=== PATIENT | female | born 1950 | race Caucasian/White ===

== ENCOUNTER → 2018-02-22 | Outpatient (CLI) | payer MEDICARE, OTHER | END | disposition home or self-care (01) | LOC: LAB 14:45 → LAB SHORT 14:45 | PROVIDERS: Family Medicine | DX: Z12.72 Encounter for screening for malignant neoplasm of vagina (principal); Z90.710 Acquired absence of both cervix and uterus | CPT/HCPCS: G0145 ==

== ENCOUNTER 2018-08-19 04:54 | Emergency (ER) | payer MEDICARE, OTHER ==
[~2018-08-19] VITALS: Ht 147.3 cm; Wt 49.0 kg
[2018-08-19 05:12] LABS: BASOPHILS ABSOLUTE AUTO 0.04 K/mm3 (0.00-0.23); BASOPHILS PERCENT AUTO 1 % (0-2); EOSINOPHILS ABSOLUTE AUTO 0.13 K/mm3 (0.00-0.68); EOSINOPHILS PERCENT AUTO 2 % (0-6); Hematocrit 39.3 % (33.0-51.0); Hemoglobin 13.1 g/dL (11.5-16.0); IMMATURE GRAN ABSOLUTE AUTO 0.01 K/mm3 (0.00-0.10); IMMATURE GRAN PERCENT AUTO 0 % (0-1); LYMPHOCYTES ABSOLUTE AUTO 2.86 K/mm3 (0.84-5.20); LYMPHOCYTES PERCENT AUTO 37 % (21-46); MONOCYTES ABSOLUTE AUTO 0.86 K/mm3 (0.16-1.47); MONOCYTES PERCENT AUTO 11 % (4-13); Mean Corpuscular HGB Conc 33.3 g/dL (31.5-36.5); Mean Corpuscular Volume 90 fL (80-100); Mean Platelet Volume 10.4 fL (9.1-12.4); NEUTROPHILS ABSOLUTE AUTO 3.89 K/mm3 (1.96-9.15); NEUTROPHILS PERCENT AUTO 50 % (41-73); Platelet Count 250 K/mm3 (150-400); RDW Coefficient Variation 12.3 % (11.7-14.2); RDW Standard Deviation 40.7 fL (35.1-46.3); Red Blood Cell Count 4.36 M/mm3 (3.80-5.20); White Blood Cell Count 7.79 K/mm3 (4.00-11.30)
[2018-08-19 05:32] LABS: Alanine Aminotransfer (ALT/SGP 25 U/L (12-78); Albumin, Blood 3.4 g/dL (3.4-5.0); Alk Phos 51 U/L (50-136); Anion Gap 11 mmol/L (6-16); Aspartate Aminotrans (AST/SGOT 16 U/L (12-37); Bilirubin, Total 0.4 mg/dL (0.1-1.0); Blood Urea Nitrogen 16 mg/dL (8-24); Bun/Creatinine Ratio 18.6 (12.0-20.0); CO2, Blood 21 mmol/L (21-32); Calcium, Blood 9.3 mg/dL (8.5-10.1); Chloride, Blood 112 mmol/L (98-108); Creatinine, Blood 0.86 mg/dL (0.40-1.00); Globulin, Blood 3.3 g/dL (2.2-4.0); Glomerular Filtration Rate >60 (60-); Glucose, Blood 104 mg/dL (70-99); Potassium, Blood 4.1 mmol/L (3.5-5.5); Sodium, Blood 144 mmol/L (136-145); Total Protein, Blood 6.7 g/dL (6.4-8.2)
[2018-08-19] MEDS ORDERED: VALA500 PO (05:47)
[2018-08-19] MEDS ORDERED: CIPR500 PO (05:47)
[2018-08-19] MEDS ORDERED: SERT100 PO (05:47)
[2018-08-19] MEDS ORDERED: LEVSOD150 PO (05:47)
[2018-08-19] MEDS ORDERED: CELE100 PO (05:48)
[2018-08-19] MEDS ORDERED: LEVE500 PO (05:48)
[2018-08-19] MEDS ORDERED: CLON.1 PO (05:48)
[2018-08-19] MEDS ORDERED: Cetirizine HCl10 MG PO (05:48)
[2018-08-19] MEDS ORDERED: Simvastatin20 MG PO (05:48)
[2018-08-19] MEDS ORDERED: Advair Hfa 230-12 GM (05:48)
[2018-08-19] MEDS ORDERED: OMEPRAZOLE20 MG PO (05:49)
[2018-08-19] MEDS ORDERED: ALEN70 PO (05:49)
[2018-08-19] MEDS ORDERED: TRAZ100 PO (05:49)
[2018-08-19] MEDS ORDERED: Keppra750 MG PO (05:49)
== END 2018-08-19 06:07 | disposition home or self-care (01) ==
LOC: ER 04:54
PROVIDERS: Emergency Medicine
DX: G40.409 Other generalized epilepsy and epileptic syndromes, not intractable, without status epilepticus (principal); Z88.0 Allergy status to penicillin; E03.9 Hypothyroidism, unspecified
CPT/HCPCS: 80053; 85025; 96365; 99284-25; J1953

== ENCOUNTER 2019-02-21 09:35 | Day surgery (SDC) | payer MEDICARE, OTHER ==
[~2019-02-21 09:35] MED LIST: ALEN70 PO; Advair Hfa 230-12 GM; CELE100 PO; CIPR500 PO; CLON.1 PO; Cetirizine HCl10 MG PO; Keppra750 MG PO; LAMO25; LEVE500 PO; LEVSOD75 PO; OMEPRAZOLE20 MG PO; SERT100 PO; Simvastatin20 MG PO; TRAZ100 PO; VALA500 PO; Vimpat200 MG; ZONI100 PO
[2019-02-21] MEDS ORDERED: VALA500 PO (10:00)
[2019-02-21] MEDS ORDERED: SPIRIVA RESPIMAT4 GM INH (10:05)
--- NOTE | 2019-02-21 10:21 | NUR ---
Ambulatory in Day SurgeryPatient states colon prep results clear. History, Chart, Medications and Allergies reviewed before start of procedure.Lungs clear T/O to Auscultation. Patient confirms NPO status and agrees with scheduled surgery. Patient States Post-Procedure ride home has been arranged.
--- NOTE | 2019-02-21 10:54 | NUR ---
02/21/[address] HERE TO PROVIDE ANESTHESIA CARE, PLEASE SEE RECORD FOR DETAILS. History, Chart, Medications and Allergies reviewed before start of procedure. PATIENT CONFIRMS NPO STATUS AND AGREES WITH SCHEDULED PROCEDURE. MONITOR INTACT WITH CONTINUOUS PULSE OXIMETRY AND INTERMITTENT BP. O2 VIA N/C INTACT THROUGHOUT SEDATION/PROCEDURE.
== END 2019-02-21 23:32 | disposition home or self-care (01) ==
LOC: ORSCMMR 09:35 → ORD 11:00 → ORSCMMR 11:00
PROVIDERS: Internal Medicine Gastroenterology
PROC: 0DBN8ZX Excision of Sigmoid Colon, Via Natural or Artificial Opening Endoscopic, Diagnostic (ICD-10-PCS; principal; 2019-02-21 11:00)
DX: Z12.11 Encounter for screening for malignant neoplasm of colon (principal); Z86.010 Personal history of colon polyps; K63.5 Polyp of colon; J44.9 Chronic obstructive pulmonary disease, unspecified; F17.210 Nicotine dependence, cigarettes, uncomplicated; G40.909 Epilepsy, unspecified, not intractable, without status epilepticus; E03.9 Hypothyroidism, unspecified; Z79.899 Other long term (current) drug therapy
CPT/HCPCS: 88305; J2704; J7120

== ENCOUNTER 2020-05-03 21:41 | Emergency (ER) | payer MEDICARE, OTHER ==
[~2020-05-03] VITALS: Ht 147.3 cm; Wt 40.8 kg
[~2020-05-03 21:41] MED LIST changes: +ATOR20 PO; +DIVA500EC PO; +FLUT.05NI; +SPIRIVA RESPIMAT4 G2 INH; +TIOT18 INH; +ZYRTEC10 M2 PO
[2020-05-03] MEDS ORDERED: Synthroid200 MCG PO (21:56)
[2020-05-03] MEDS ORDERED: OMEP20ER PO (21:56)
[2020-05-03] MEDS ORDERED: ZYRTEC10 M2 PO (21:57)
[2020-05-03] MEDS ORDERED: CELE100 PO (21:57)
[2020-05-03] MEDS ORDERED: ALEN70 PO (21:57)
[2020-05-03] MEDS ORDERED: ATOR20 PO (21:57)
[2020-05-03] MEDS ORDERED: LEVE500 PO (21:57)
[2020-05-03] MEDS ORDERED: TRAZ100 PO (21:57)
[2020-05-03 22:39] LABS: BASOPHILS ABSOLUTE AUTO 0.04 K/mm3 (0.00-0.23); BASOPHILS PERCENT AUTO 1 % (0-2); EOSINOPHILS ABSOLUTE AUTO 0.12 K/mm3 (0.00-0.68); EOSINOPHILS PERCENT AUTO 2 % (0-6); Hematocrit 38.8 % (33.0-51.0); Hemoglobin 12.8 g/dL (11.5-16.0); IMMATURE GRAN ABSOLUTE AUTO 0.03 K/mm3 (0.00-0.10); IMMATURE GRAN PERCENT AUTO 0 % (0-1); LYMPHOCYTES PERCENT AUTO 32 % (21-46); MONOCYTES ABSOLUTE AUTO 0.88 K/mm3 (0.16-1.47); MONOCYTES PERCENT AUTO 11 % (4-13); Mean Corpuscular HGB 31.9 pg (26.0-34.0); Mean Corpuscular Volume 97 fL (80-100); Mean Platelet Volume 10.4 fL (9.1-12.4); NEUTROPHILS ABSOLUTE AUTO 4.46 K/mm3 (1.96-9.15); NEUTROPHILS PERCENT AUTO 55 % (41-73); Platelet Count 172 K/mm3 (150-400); RDW Coefficient Variation 13.5 % (11.7-14.2); RDW Standard Deviation 48.5 fL (35.1-46.3); Red Blood Cell Count 4.01 M/mm3 (3.80-5.20); White Blood Cell Count 8.13 K/mm3 (4.00-11.30)
[2020-05-03 22:52] LABS: Alanine Aminotransfer (ALT/SGP 23 U/L (12-78); Albumin, Blood 3.2 g/dL (3.4-5.0); Albumin/Globulin Ratio 1.1 (0.8-1.8); Alk Phos 45 U/L (50-136); Anion Gap 6 mmol/L (6-16); Aspartate Aminotrans (AST/SGOT 17 U/L (12-37); Bilirubin, Total 0.2 mg/dL (0.1-1.0); Blood Urea Nitrogen 19 mg/dL (8-24); Bun/Creatinine Ratio 30.5 (12.0-20.0); CO2, Blood 25 mmol/L (21-32); Calcium, Blood 8.6 mg/dL (8.5-10.1); Chloride, Blood 107 mmol/L (98-108); Creatinine, Blood 0.62 mg/dL (0.40-1.00); Globulin, Blood 2.8 g/dL (2.2-4.0); Glomerular Filtration Rate >60 (60-); Glucose, Blood 85 mg/dL (70-99); Magnesium, Blood 2.1 mg/dL (1.6-2.4); Potassium, Blood 4.4 mmol/L (3.5-5.5); Sodium, Blood 138 mmol/L (136-145)
[2020-05-03 23:25] LABS: Valproic Acid 39.6 ug/mL (50.0-100.0)
== END 2020-05-04 00:40 | disposition home or self-care (01) ==
LOC: ER 21:41
PROVIDERS: Emergency Medicine
DX: G40.909 Epilepsy, unspecified, not intractable, without status epilepticus (principal); E03.9 Hypothyroidism, unspecified; J44.9 Chronic obstructive pulmonary disease, unspecified; F17.200 Nicotine dependence, unspecified, uncomplicated; Z88.0 Allergy status to penicillin; Z79.899 Other long term (current) drug therapy
CPT/HCPCS: 80053; 80164; 80177; 83735; 85025; 93005; 93010; 99284-25

== ENCOUNTER → 2020-05-08 | Outpatient (CLI) | payer MEDICARE, OTHER ==
[~2020-05-08] MED LIST changes: +OMEP20ER PO; +Synthroid200 MCG PO
== END | disposition home or self-care (01) ==
LOC: LAB UCHC 10:46 → LAB SHORT 10:46
DX: N39.0 Urinary tract infection, site not specified (principal)
CPT/HCPCS: 87086

== ENCOUNTER 2020-07-01 07:51 | Day surgery (SDC) | payer MEDICARE, OTHER ==
[~2020-07-01] VITALS: Ht 147.3 cm; Wt 40.7 kg
[~2020-07-01 07:51] MED LIST changes: +Flonase 0.05% N16 GM
--- NOTE | 2020-07-01 09:38 | NUR ---
PT TO DAYS SURGERY VIA WC. PT IS ABLE TO STAND AND AMBULATE INDEPENDENTLY. WEIGHED AND TO THE RESTROOM. PT PLACED IN GOWN. PRE PROCEDURE PAPERWORK COMPLETED. PT REFUSES TO CONSENT FOR BLOOD. STS THAT SHE HAS TO HAVE HER BLOOD CHECKED BECAUSE SHE HAS REACTIONS. IV PLACED, LR STARTED ORDERED. PT VSS ON RA. PT PROVIDED WARM BLANKETS. SPOUSE WILL BE RIDE HOME. DR. SALAZAR TO BEDSIDE FOR EXAMINATION.WOULD LIKE PT TO TAKE HOME KEPPRA AND DEPAKOTE AT THIS TIME. PT PROVIDED WATER AND TAKES MEDICATION DIRECTED BY . MINIMAL WATER INTAKE. NO ADDITIONAL NEEDS AT THIS TIME. Ambulatory in Day Surgery History, Chart, Medications and Allergies reviewed before start of procedure. Patient confirms NPO status and agrees with scheduled surgery. Patient States Post-Procedure ride home has been arranged. History, Chart, Medications and Allergies reviewed before start of procedure. Lungs clear T/O to Auscultation.
--- NOTE | 2020-07-01 10:18 | NUR ---
Patient up to Ambulate independently. Gait steady. Discharge instructions reviewed with patient. Patient verbalizes understanding. Copy given to patient to take home. Patient States Post-Procedure ride home has been arranged. Discharged via wheelchair to private car for ride home.
== END 2020-07-01 10:35 | disposition home or self-care (01) ==
LOC: ORSCMMR 07:51 → ORD 09:30 → ORSCMMR 10:35
PROVIDERS: Internal Medicine Gastroenterology
PROC: 0DB78ZX Excision of Stomach, Pylorus, Via Natural or Artificial Opening Endoscopic, Diagnostic (ICD-10-PCS; principal; 2020-07-01 09:30)
PROC: 0DB98ZX Excision of Duodenum, Via Natural or Artificial Opening Endoscopic, Diagnostic (ICD-10-PCS; principal; 2020-07-01 09:30)
DX: R10.33 Periumbilical pain (principal); R10.13 Epigastric pain; E78.5 Hyperlipidemia, unspecified; J44.9 Chronic obstructive pulmonary disease, unspecified; F17.210 Nicotine dependence, cigarettes, uncomplicated; K21.9 Gastro-esophageal reflux disease without esophagitis; E03.9 Hypothyroidism, unspecified; R56.9 Unspecified convulsions; Z79.899 Other long term (current) drug therapy
CPT/HCPCS: 88305; J2001; J2250; J2704; J7120

== ENCOUNTER 2020-12-31 16:44 | Emergency (ER) | payer MEDICARE, OTHER ==
[~2020-12-31] VITALS: Ht 147.3 cm; Wt 39.9 kg
[2020-12-31 17:53] LABS: BASOPHILS ABSOLUTE AUTO 0.02 K/mm3 (0.00-0.23); BASOPHILS PERCENT AUTO 0 % (0-2); EOSINOPHILS PERCENT AUTO 2 % (0-6); Hematocrit 33.5 % (33.0-51.0); Hemoglobin 12.2 g/dL (11.5-16.0); IMMATURE GRAN ABSOLUTE AUTO 0.03 K/mm3 (0.00-0.10); IMMATURE GRAN PERCENT AUTO 1 % (0-1); LYMPHOCYTES ABSOLUTE AUTO 1.68 K/mm3 (0.84-5.20); LYMPHOCYTES PERCENT AUTO 27 % (21-46); MONOCYTES ABSOLUTE AUTO 0.61 K/mm3 (0.16-1.47); MONOCYTES PERCENT AUTO 10 % (4-13); Mean Corpuscular HGB 36.6 pg (26.0-34.0); Mean Corpuscular HGB Conc 36.4 g/dL (31.5-36.5); Mean Corpuscular Volume 101 fL (80-100); NEUTROPHILS ABSOLUTE AUTO 3.76 K/mm3 (1.96-9.15); NEUTROPHILS PERCENT AUTO 61 % (41-73); Platelet Count 143 K/mm3 (150-400); RDW Coefficient Variation 13.2 % (11.7-14.2); RDW Standard Deviation 49.1 fL (35.1-46.3); Red Blood Cell Count 3.33 M/mm3 (3.80-5.20)
[2020-12-31 18:13] LABS: Alanine Aminotransfer (ALT/SGP 16 U/L (12-78); Alk Phos 86 U/L (50-136); Anion Gap 6 mmol/L (6-16); Aspartate Aminotrans (AST/SGOT 20 U/L (12-37); Bilirubin, Total 0.3 mg/dL (0.1-1.0); Blood Urea Nitrogen 9 mg/dL (8-24); Bun/Creatinine Ratio 13.5 (12.0-20.0); CO2, Blood 23 mmol/L (21-32); Calcium, Blood 8.6 mg/dL (8.5-10.1); Chloride, Blood 99 mmol/L (98-108); Creatinine, Blood 0.67 mg/dL (0.40-1.00); Globulin, Blood 3.1 g/dL (2.2-4.0); Glomerular Filtration Rate >60 (60-); Glucose, Blood 109 mg/dL (70-99); Potassium, Blood 4.2 mmol/L (3.5-5.5); Sodium, Blood 128 mmol/L (136-145); Total Protein, Blood 6.1 g/dL (6.4-8.2)
[2020-12-31 18:17] LABS: Valproic Acid 84.9 ug/mL (50.0-100.0)
[2020-12-31 19:18] LABS: Platelet Function Col/ADP 109 sec (56-115); Platelet Function Col/Epi 139 sec (75-165)
[2020-12-31 19:37] LABS: International Normalized Ratio 0.89; Prothrombin Time Results 9.7 Sec (9.7-11.5)
[2021-01-20] MEDS ORDERED: ZOLOFT50 MG PO (21:10)
== END 2020-12-31 22:26 | disposition short-term general hospital (02) ==
LOC: ER 16:44
PROVIDERS: Emergency Medicine
DX: I62.00 Nontraumatic subdural hemorrhage, unspecified (principal); J44.9 Chronic obstructive pulmonary disease, unspecified; K21.9 Gastro-esophageal reflux disease without esophagitis; F17.210 Nicotine dependence, cigarettes, uncomplicated; Z88.0 Allergy status to penicillin; Z79.899 Other long term (current) drug therapy
CPT/HCPCS: 36415; 70450; 80053; 80164; 84443; 85025; 85576; 85610; 85730; 93005; 93010; 99285-25

== ENCOUNTER 2021-02-23 13:29 | Emergency (ER) | payer MEDICARE, OTHER ==
[~2021-02-23] VITALS: Ht 144.8 cm; Wt 38.6 kg
[~2021-02-23 13:29] MED LIST changes: +ZOLOFT50 MG PO
[2021-02-23 14:18] LABS: BASOPHILS ABSOLUTE AUTO 0.03 K/mm3 (0.00-0.23); BASOPHILS PERCENT AUTO 1 % (0-2); EOSINOPHILS ABSOLUTE AUTO 0.03 K/mm3 (0.00-0.68); EOSINOPHILS PERCENT AUTO 1 % (0-6); Hematocrit 39.6 % (33.0-51.0); Hemoglobin 14.4 g/dL (11.5-16.0); IMMATURE GRAN ABSOLUTE AUTO 0.04 K/mm3 (0.00-0.10); IMMATURE GRAN PERCENT AUTO 1 % (0-1); LYMPHOCYTES ABSOLUTE AUTO 1.93 K/mm3 (0.84-5.20); LYMPHOCYTES PERCENT AUTO 30 % (21-46); MONOCYTES ABSOLUTE AUTO 0.85 K/mm3 (0.16-1.47); MONOCYTES PERCENT AUTO 13 % (4-13); Mean Corpuscular HGB 34.4 pg (26.0-34.0); Mean Corpuscular HGB Conc 36.4 g/dL (31.5-36.5); Mean Corpuscular Volume 95 fL (80-100); NEUTROPHILS ABSOLUTE AUTO 3.57 K/mm3 (1.96-9.15); NEUTROPHILS PERCENT AUTO 55 % (41-73); Platelet Count 176 K/mm3 (150-400); RDW Coefficient Variation 11.5 % (11.7-14.2); RDW Standard Deviation 39.8 fL (35.1-46.3); Red Blood Cell Count 4.18 M/mm3 (3.80-5.20); White Blood Cell Count 6.45 K/mm3 (4.00-11.30)
[2021-02-23 14:52] LABS: Alanine Aminotransfer (ALT/SGP 28 U/L (12-78); Albumin, Blood 3.2 g/dL (3.4-5.0); Albumin/Globulin Ratio 0.9 (0.8-1.8); Alk Phos 85 U/L (50-136); Anion Gap 7 mmol/L (6-16); Aspartate Aminotrans (AST/SGOT 33 U/L (12-37); Bilirubin, Total 0.4 mg/dL (0.1-1.0); Blood Urea Nitrogen 14 mg/dL (8-24); Bun/Creatinine Ratio 25.4 (12.0-20.0); CO2, Blood 22 mmol/L (21-32); Calcium, Blood 8.5 mg/dL (8.5-10.1); Chloride, Blood 95 mmol/L (98-108); Creatinine, Blood 0.55 mg/dL (0.40-1.00); Globulin, Blood 3.5 g/dL (2.2-4.0); Glomerular Filtration Rate >60 (60-); Glucose, Blood 74 mg/dL (70-99); Potassium, Blood 4.5 mmol/L (3.5-5.5); Sodium, Blood 124 mmol/L (136-145); Total Protein, Blood 6.7 g/dL (6.4-8.2); Valproic Acid 90.2 ug/mL (50.0-100.0)
== END 2021-02-23 15:20 | disposition home or self-care (01) ==
LOC: ER 13:29
PROVIDERS: Physician Assistant
DX: S09.90XA Unspecified injury of head, initial encounter (principal); W01.10XA Fall on same level from slipping, tripping and stumbling with subsequent striking against unspecified object, initial encounter; E03.9 Hypothyroidism, unspecified; F17.210 Nicotine dependence, cigarettes, uncomplicated; Z88.0 Allergy status to penicillin
CPT/HCPCS: 36415; 70450; 80053; 80164; 80177; 85025; 99284-25

== ENCOUNTER 2021-02-28 15:23 | Emergency (ER) | payer MEDICARE, OTHER ==
[~2021-02-28] VITALS: Ht 144.8 cm; Wt 38.6 kg
[2021-02-28 16:59] LABS: BASOPHILS ABSOLUTE AUTO 0.03 K/mm3 (0.00-0.23); BASOPHILS PERCENT AUTO 0 % (0-2); EOSINOPHILS ABSOLUTE AUTO 0.04 K/mm3 (0.00-0.68); EOSINOPHILS PERCENT AUTO 1 % (0-6); Hematocrit 39.8 % (33.0-51.0); Hemoglobin 14.1 g/dL (11.5-16.0); IMMATURE GRAN ABSOLUTE AUTO 0.05 K/mm3 (0.00-0.10); IMMATURE GRAN PERCENT AUTO 1 % (0-1); LYMPHOCYTES ABSOLUTE AUTO 2.07 K/mm3 (0.84-5.20); LYMPHOCYTES PERCENT AUTO 25 % (21-46); MONOCYTES ABSOLUTE AUTO 1.09 K/mm3 (0.16-1.47); MONOCYTES PERCENT AUTO 13 % (4-13); Mean Corpuscular HGB 34.1 pg (26.0-34.0); Mean Corpuscular HGB Conc 35.4 g/dL (31.5-36.5); Mean Corpuscular Volume 96 fL (80-100); Mean Platelet Volume 10.8 fL (9.1-12.4); NEUTROPHILS ABSOLUTE AUTO 5.17 K/mm3 (1.96-9.15); NEUTROPHILS PERCENT AUTO 61 % (41-73); Platelet Count 172 K/mm3 (150-400); RDW Coefficient Variation 11.7 % (11.7-14.2); RDW Standard Deviation 41.5 fL (35.1-46.3); Red Blood Cell Count 4.13 M/mm3 (3.80-5.20); White Blood Cell Count 8.45 K/mm3 (4.00-11.30)
[2021-02-28 17:31] LABS: Alanine Aminotransfer (ALT/SGP 25 U/L (12-78); Albumin, Blood 3.3 g/dL (3.4-5.0); Alk Phos 87 U/L (50-136); Anion Gap 6 mmol/L (6-16); Aspartate Aminotrans (AST/SGOT 33 U/L (12-37); Bilirubin, Total 0.3 mg/dL (0.1-1.0); Blood Urea Nitrogen 15 mg/dL (8-24); Bun/Creatinine Ratio 28.2 (12.0-20.0); CO2, Blood 24 mmol/L (21-32); Calcium, Blood 9.3 mg/dL (8.5-10.1); Chloride, Blood 99 mmol/L (98-108); Creatinine, Blood 0.53 mg/dL (0.40-1.00); Globulin, Blood 3.4 g/dL (2.2-4.0); Glomerular Filtration Rate >60 (60-); Glucose, Blood 83 mg/dL (70-99); Potassium, Blood 4.6 mmol/L (3.5-5.5); Sodium, Blood 129 mmol/L (136-145); Total Protein, Blood 6.7 g/dL (6.4-8.2)
== END 2021-02-28 21:48 | disposition left against medical advice (07) ==
LOC: ER 15:23
PROVIDERS: Physician Assistant
DX: S01.01XA Laceration without foreign body of scalp, initial encounter (principal); Z79.899 Other long term (current) drug therapy; Z79.890 Hormone replacement therapy; Z53.20 Procedure and treatment not carried out because of patient's decision for unspecified reasons; W19.XXXA Unspecified fall, initial encounter
CPT/HCPCS: 36415; 70450; 80053; 85025; 99283-25

== ENCOUNTER 2021-11-03 14:47 | Emergency (ER) | payer OTHER, MEDICARE ==
[~2021-11-03] VITALS: Ht 147.3 cm; Wt 47.0 kg
[~2021-11-03 14:47] MED LIST changes: +CALCIUM CARBON500 M1 PO; +DIVA250EC PO; +LEVO-T100 MC1 PO; +MAG DELAY64 MG PO; +VITAMIN D310 MC4 PO; +Zinc PO
== END 2021-11-03 16:25 | disposition home or self-care (01) ==
LOC: ER 14:47
DX: S09.90XA Unspecified injury of head, initial encounter (principal); S00.83XA Contusion of other part of head, initial encounter; F17.210 Nicotine dependence, cigarettes, uncomplicated; E03.9 Hypothyroidism, unspecified; J44.9 Chronic obstructive pulmonary disease, unspecified; M50.30 Other cervical disc degeneration, unspecified cervical region; M12.9 Arthropathy, unspecified; Z96.649 Presence of unspecified artificial hip joint; W01.198A Fall on same level from slipping, tripping and stumbling with subsequent striking against other object, initial encounter; Y93.01 Activity, walking, marching and hiking
CPT/HCPCS: 70450; 72125

== ENCOUNTER 2022-05-11 08:33 | Emergency (ER) | payer MEDICARE, OTHER ==
[~2022-05-11] VITALS: Ht 154.9 cm; Wt 52.2 kg
[2022-05-11 10:29] LABS: BASOPHILS ABSOLUTE AUTO 0.02 K/mm3 (0.00-0.23); BASOPHILS PERCENT AUTO 0 % (0-2); EOSINOPHILS PERCENT AUTO 0 % (0-6); Hematocrit 39.5 % (33.0-51.0); Hemoglobin 14.1 g/dL (11.5-16.0); IMMATURE GRAN ABSOLUTE AUTO 0.05 K/mm3 (0.00-0.10); IMMATURE GRAN PERCENT AUTO 1 % (0-1); LYMPHOCYTES ABSOLUTE AUTO 0.81 K/mm3 (0.84-5.20); LYMPHOCYTES PERCENT AUTO 8 % (21-46); MONOCYTES ABSOLUTE AUTO 0.77 K/mm3 (0.16-1.47); MONOCYTES PERCENT AUTO 8 % (4-13); Mean Corpuscular HGB 33.2 pg (26.0-34.0); Mean Corpuscular HGB Conc 35.7 g/dL (31.5-36.5); Mean Corpuscular Volume 93 fL (80-100); Mean Platelet Volume 10.8 fL (9.1-12.4); NEUTROPHILS ABSOLUTE AUTO 8.11 K/mm3 (1.96-9.15); NEUTROPHILS PERCENT AUTO 83 % (41-73); Platelet Count 159 K/mm3 (150-400); RDW Coefficient Variation 12.3 % (11.7-14.2); Red Blood Cell Count 4.25 M/mm3 (3.80-5.20); White Blood Cell Count 9.76 K/mm3 (4.00-11.30)
[2022-05-11 10:35] LABS: Source, Urine Clean Catch
[2022-05-11 10:45] LABS: Appearance, Urine Clear (Clear); Bilirubin, Urine Neg (Neg); Blood, Urine 5+ (Neg); Color, Urine Yellow (P-Yellow); Glucose Qualitative, Urine Neg (Neg); Ketones, Urine 2+ (Neg); Leukocyte Esterase, Urine 2+ (Neg); Nitrite, Urine Neg (Neg); Protein, Urine 1+ (Neg); Specific Gravity, Urine 1.015 (1.003-1.022); Urobilinogen, Urine NORM (Normal)
[2022-05-11 10:57] LABS: Squamous Epithelial Cells Few /hpf (Few)
[2022-05-11 10:58] LABS: Bacteria Mod /hpf
[2022-05-11 11:00] LABS: Albumin, Blood 2.9 g/dL (3.4-5.0); Albumin/Globulin Ratio 0.8 (0.8-1.8); Bilirubin, Total 0.4 mg/dL (0.1-1.0); Bun/Creatinine Ratio 22.2 (12.0-20.0); Calcium, Blood 8.8 mg/dL (8.5-10.1); Creatinine, Blood 0.59 mg/dL (0.40-1.00); Free Thyroxine 1.5 ng/dL (0.70-1.60); Globulin, Blood 3.6 g/dL (2.2-4.0); Potassium, Blood 3.9 mmol/L (3.5-5.5); Thyroid Stimulating Hormone 0.429 uIU/mL (0.360-4.800); Total Protein, Blood 6.5 g/dL (6.4-8.2)
[2022-05-11] MEDS ORDERED: METR500 PO (11:17)
[2022-05-11] MEDS ORDERED: PROBIOTIC1 EA13 PO (11:17)
[2022-05-11] MEDS ORDERED: CIPR500 PO (11:17)
== END 2022-05-11 13:07 | disposition home or self-care (01) ==
LOC: ER 08:33
PROVIDERS: Emergency Medicine
DX: K52.89 Other specified noninfective gastroenteritis and colitis (principal); E03.9 Hypothyroidism, unspecified; J44.9 Chronic obstructive pulmonary disease, unspecified; G40.909 Epilepsy, unspecified, not intractable, without status epilepticus; K21.9 Gastro-esophageal reflux disease without esophagitis; F17.210 Nicotine dependence, cigarettes, uncomplicated; Z88.0 Allergy status to penicillin; Z79.899 Other long term (current) drug therapy
CPT/HCPCS: 36415; 74177; 80053; 81001; 84439; 84443; 85025; 87077; 87086; 87186; J7030; Q9967

== ENCOUNTER 2022-05-18 16:19 | Emergency (ER) | payer MEDICARE, OTHER ==
[~2022-05-18] VITALS: Ht 147.3 cm; Wt 45.8 kg
[~2022-05-18 16:19] MED LIST changes: +METR500 PO; +PROBIOTIC1 EA13 PO
== END 2022-05-18 18:41 | disposition home or self-care (01) ==
LOC: ER 16:19
DX: G40.909 Epilepsy, unspecified, not intractable, without status epilepticus (principal); S09.90XA Unspecified injury of head, initial encounter; W19.XXXA Unspecified fall, initial encounter; J44.9 Chronic obstructive pulmonary disease, unspecified; E03.9 Hypothyroidism, unspecified; Z79.899 Other long term (current) drug therapy; Z88.0 Allergy status to penicillin
CPT/HCPCS: 70450

== ENCOUNTER → 2022-09-30 | Outpatient (CLI) | payer MEDICARE, OTHER ==
[2022-09-30 21:23] LABS: Adenovirus F 40/41 Not Detected (NOT DETECT); Astrovirus Not Detected (NOT DETECT); Campylobacter Sp Not Detected (NOT DETECT); Cryptosporidium Not Detected (NOT DETECT); Cyclospora Cayetanensis Not Detected (NOT DETECT); E. Coli O157 Not Detected (NOT DETECT); Entamoeba Histolytica Not Detected (NOT DETECT); Enteroaggregative E. coli-EAEC Not Detected (NOT DETECT); Enteropathogenic E. coli-EPEC Not Detected (NOT DETECT); Enterotoxigenic E. coli-ETEC Not Detected (NOT DETECT); Giardia Lamblia Not Detected (NOT DETECT); Norovirus GI/GII Detected (NOT DETECT); Plesiomonas Shigelloides Not Detected (NOT DETECT); Rotavirus A Not Detected (NOT DETECT); Salmonella Sp Not Detected (NOT DETECT); Sapovirus Not Detected (NOT DETECT); Shiga Toxin-prod E. coli-STEC Not Detected (NOT DETECT); Shigella/Enteroin E. coli-EIEC Not Detected (NOT DETECT); Vibrio Cholerae Not Detected (NOT DETECT); Vibrio Sp Not Detected (NOT DETECT); Yersinia Enterocolitica Not Detected (NOT DETECT)
[2022-10-01 07:16] LABS: Stool Occult Bld Immuno 1 Negative (NEGATIVE)
== END | disposition home or self-care (01) ==
LOC: LAB SHORT 11:55 → LAB 11:55
PROVIDERS: Family Medicine
DX: R19.7 Diarrhea, unspecified (principal)
CPT/HCPCS: 82274; 87507

== ENCOUNTER 2022-11-26 09:27 | Emergency (ER) | payer MEDICARE, OTHER ==
[~2022-11-26] VITALS: Ht 147.3 cm; Wt 47.2 kg
[~2022-11-26 09:27] MED LIST changes: +IBU800 MG PO; +Percocet 5-3251 EACH PO
[2022-11-26] MEDS ORDERED: SENNA LAXATIVE8.6 MG PO (10:49)
[2022-11-26 14:45] VITALS: BP 139/70
[2022-11-26] MEDS ORDERED: IBUP600 PO (15:01)
== END 2022-11-26 15:13 | disposition home or self-care (01) ==
LOC: ER 09:27
DX: R53.83 Other fatigue (principal); R63.0 Anorexia; K59.00 Constipation, unspecified; H53.9 Unspecified visual disturbance; W18.30XA Fall on same level, unspecified, initial encounter; T42.4X5A Adverse effect of benzodiazepines, initial encounter; Z88.0 Allergy status to penicillin; Z88.8 Allergy status to other drugs, medicaments and biological substances; Z79.899 Other long term (current) drug therapy; G40.909 Epilepsy, unspecified, not intractable, without status epilepticus; E03.9 Hypothyroidism, unspecified; J44.9 Chronic obstructive pulmonary disease, unspecified; K21.9 Gastro-esophageal reflux disease without esophagitis; F17.210 Nicotine dependence, cigarettes, uncomplicated
CPT/HCPCS: 82947; 97112; 97162; 99284

== ENCOUNTER 2023-12-31 08:38 | Emergency (ER) | payer OTHER ==
[~2023-12-31] VITALS: Ht 147.3 cm; Wt 39.9 kg
[~2023-12-31 08:38] MED LIST changes: +IBUP600 PO; +OXYC5 PO; +SENNA LAXATIVE8.6 MG PO; +SYNTHROID88 MCG PO; +VALTREX50013 PO
[2023-12-31] MEDS ORDERED: DEPAKOTE ER250 M2 (08:52)
[2023-12-31] MEDS ORDERED: OMEPRAZOLE MAGN20 M1 (08:52)
[2023-12-31] MEDS ORDERED: Diphth,Pertuss(Acell),Tet Vac 0.5 ML VIAL IM ONE (08:55)
[2023-12-31 10:36] VITALS: BP 117/70
== END 2023-12-31 11:06 | disposition home or self-care (01) ==
LOC: ER 08:38
DX: S01.01XA Laceration without foreign body of scalp, initial encounter (principal); E03.9 Hypothyroidism, unspecified; J44.9 Chronic obstructive pulmonary disease, unspecified; K21.9 Gastro-esophageal reflux disease without esophagitis; F17.210 Nicotine dependence, cigarettes, uncomplicated; W19.XXXA Unspecified fall, initial encounter; Z91.81 History of falling; Z79.899 Other long term (current) drug therapy; Z88.0 Allergy status to penicillin; Z88.8 Allergy status to other drugs, medicaments and biological substances
CPT/HCPCS: 12011; 70450; 90471; 90715; 99284-25

== ENCOUNTER → 2024-01-10 | Outpatient (CLI) | payer OTHER ==
[~2024-01-10] MED LIST changes: +DEPAKOTE ER250 M2; +OMEPRAZOLE MAGN20 M1
[2024-01-10 19:46] LABS: BASOPHILS ABSOLUTE AUTO 0.02 K/mm3 (0.00-0.23); BASOPHILS PERCENT AUTO 0 % (0-2); EOSINOPHILS ABSOLUTE AUTO 0.27 K/mm3 (0.00-0.68); EOSINOPHILS PERCENT AUTO 6 % (0-6); Hematocrit 38.7 % (33.0-51.0); Hemoglobin 14.2 g/dL (11.5-16.0); IMMATURE GRAN ABSOLUTE AUTO 0.02 K/mm3 (0.00-0.10); IMMATURE GRAN PERCENT AUTO 0 % (0-1); LYMPHOCYTES PERCENT AUTO 33 % (21-46); MONOCYTES ABSOLUTE AUTO 0.49 K/mm3 (0.16-1.47); MONOCYTES PERCENT AUTO 10 % (4-13); Mean Corpuscular HGB 34.4 pg (26.0-34.0); Mean Corpuscular HGB Conc 36.7 g/dL (31.5-36.5); Mean Corpuscular Volume 94 fL (80-100); Mean Platelet Volume 10.6 fL (9.1-12.4); NEUTROPHILS PERCENT AUTO 51 % (41-73); Platelet Count 226 K/mm3 (150-400); RDW Coefficient Variation 12.8 % (11.7-14.2); Red Blood Cell Count 4.13 M/mm3 (3.80-5.20)
[2024-01-10 20:08] LABS: LDL/HDL RATIO 0.7; Very Low Density Lipoprot Chol 13 mg/dL (6-32)
[2024-01-10 20:09] LABS: Alanine Aminotransfer (ALT/SGP 17 U/L (12-78); Albumin, Blood 3.3 g/dL (3.4-5.0); Alk Phos 69 U/L (50-136); Anion Gap 9 mmol/L (3-11); Aspartate Aminotrans (AST/SGOT 19 U/L (12-37); Bilirubin, Total 0.4 mg/dL (0.1-1.0); Blood Urea Nitrogen 9 mg/dL (8-24); Bun/Creatinine Ratio 19.7 (12.0-20.0); CHOL/HDL RATIO 1.9; CO2, Blood 25 mmol/L (21-32); Chloride, Blood 96 mmol/L (98-108); Cholesterol 136 mg/dL (50-200); Creatinine, Blood 0.46 mg/dL (0.40-1.00); Globulin, Blood 3.2 g/dL (2.2-4.0); Glomerular Filtration Rate 102 (60-); Glucose, Blood 112 mg/dL (70-99); HDL Cholesterol 73 mg/dL (>39); Low Density Lipoprotein Chol 50 mg/dL (0-110); Potassium, Blood 4.1 mmol/L (3.5-5.5); Sodium, Blood 126 mmol/L (136-145); Total Protein, Blood 6.5 g/dL (6.4-8.2); Triglycerides 67 mg/dL (30-160)
[2024-01-10 20:13] LABS: Thyroid Stimulating Hormone 0.097 uIU/mL (0.360-4.800)
== END | disposition home or self-care (01) ==
LOC: LAB SHORT 18:36 → LAB 18:36
PROVIDERS: Family Medicine
DX: Z51.81 Encounter for therapeutic drug level monitoring (principal); Z79.899 Other long term (current) drug therapy
CPT/HCPCS: 80053; 80061; 82306; 83036; 84443; 85025